=== PATIENT | female | born 1965 | race Caucasian/White ===

== ENCOUNTER 2017-02-02 15:56 | Emergency (ER) | payer MEDICAID ==
[~2017-02-02] VITALS: Ht 154.9 cm; Wt 60.0 kg
[2017-02-02] MEDS ORDERED: PLEASE ENTER HEIGHT AND WEIGHT MC SCH (17:00)
[2017-02-02] MEDS ORDERED: PLEASE ENTER ALLERGIES MC SCH ×2 (17:00)
[2017-02-02] MEDS ORDERED: FAMOTIDINE 20 MG/2 ML IVP ONE (17:00)
[2017-02-02] MEDS ORDERED: MAALOX/HYOSCYAMINE/LIDOCAINE 45 ML BTL PO ONE (17:00)
[2017-02-02] MEDS ORDERED: SODIUM CHLORIDE FLUSH 10ML SYR IVF ONE (17:00)
[2017-02-02] MEDS ORDERED: ONDANSETRON 2MG/ML, 2ML IVPush ONE (17:00)
[2017-02-02] MEDS ORDERED: SODIUM CHLORIDE 0.9% 1,000ML IVBOLUS ONE (17:00)
[2017-02-02] MEDS ORDERED: MORPHINE SULFATE 4 MG/ML, 1ML IVPush PRN (17:00)
[2017-02-02 17:08] LABS: HEMATOCRIT 45.9 % (34.6-47.8); HEMOGLOBIN 15.3 g/dL (11.7-16.4); WHITE BLOOD COUNT 9.8 x10^3/uL (3.4-10)
[2017-02-02 17:20] LABS: ASPARTATE AMINO TRANSFERASE 21 U/L (15-37); BLOOD UREA NITROGEN 10 mg/dL (7-18)
[2017-02-02] MEDS ORDERED: ONDANSETRON 2MG/ML, 2ML ONE (17:20)
[2017-02-02] MEDS ORDERED: FAMOTIDINE 20 MG/2 ML ONE (17:20)
[2017-02-02] MEDS ORDERED: MAALOX/HYOSCYAMINE/LIDOCAINE 45 ML BTL ONE (17:21)
[2017-02-02] MEDS ORDERED: morphine SULFATE 10 MG/ML, 1ML ONE (17:22)
[2017-02-02] MEDS ORDERED: BUPR-86 PO (17:37)
[2017-02-02] MEDS ORDERED: PREG150C PO (17:37)
[2017-02-02] MEDS ORDERED: METOCLOPRAMIDE 5 MG/ML, 2ML ONE (18:30)
[2017-02-02] MEDS ORDERED: SODIUM CHLORIDE 0.9%, 500ML IVBOLUS ONE (18:30)
[2017-02-02] MEDS ORDERED: METOCLOPRAMIDE 5 MG/ML, 2ML IVPush ONE (18:30)
[2017-02-02 19:22] VITALS: BP 108/60
== END 2017-02-02 19:22 ==
LOC: EDBD 15:56 → ED 17:23
DX: G89.29 Other chronic pain (principal); R11.2 Nausea with vomiting, unspecified; R10.13 Epigastric pain; K21.9 Gastro-esophageal reflux disease without esophagitis; E86.0 Dehydration
CPT/HCPCS: 36415; 80053; 83690; 85025; 96361; 96374; 96375; 99284; J2405; J2765; J7030; J7040; S0028